=== PATIENT | male | born 1985 | race Hispanic/Latino ===

== ENCOUNTER 2017-06-26 11:14 | Emergency (ER) | payer OTHER ==
[2017-06-26 12:17] LABS: Bilirubin,Urine NEG (Negative); Blood,Urine NEG (Negative); Color,Urine Yellow (Yellow); Protein,Urine <15 mg/dL mg/dL (Negative); Urobilinogen,Urine < 2.0 mg/dL (<2.0); WBC,Urine < 1.0 /HPF (0.0-6.0)
[2017-06-26 12:25] LABS: Amphetamine Screen,Urine PRESUMPTIVE NEGATIVE; Benzodiazepines Screen,Urine PRESUMPTIVE NEGATIVE; Cannabinoid Screen,Urine PRESUMPTIVE NEGATIVE; Cocaine Screen,Urine PRESUMPTIVE NEGATIVE; Methadone Screen,Urine PRESUMPTIVE NEGATIVE; Opiate Screen,Urine PRESUMPTIVE NEGATIVE
[2017-06-26 12:31] LABS: Basophils # (Auto) 0.1 K/mm3 (0.0-0.1); Basophils % (Auto) 0.7 % (0.0-1.8); Eosinophils # (Auto) 0.1 K/mm3 (0.0-0.4); Eosinophils % (Auto) 1.3 % (0.0-4.3); Hematocrit 47.1 % (35.5-45.6); Hemoglobin 16.2 gm/dl (11.8-15.2); Lymphocytes # (Auto) 1.9 K/mm3 (1.2-5.4); Lymphocytes % (Auto) 20.4 % (13.4-35.0); Mean Corpuscular HGB Conc 35 % (32-34); Mean Corpuscular Hemoglobin 29 pg (28-32); Mean Corpuscular Volume 84 fl (84-94); Monocytes # (Auto) 0.8 K/mm3 (0.0-0.8); Monocytes % (Auto) 8.3 % (0.0-7.3); Red Blood Count 5.62 M/mm3 (3.65-5.03); Red Cell Distribution Width 13.6 % (13.2-15.2)
[2017-06-26 12:45] LABS: BUN/Creatinine Ratio 17; Blood Urea Nitrogen 10 mg/dL (9-20); Calcium 9.2 mg/dL (8.4-10.2); Hemolysis Index 35
[2017-06-26 13:34] LABS: Mean Platelet Volume 7.6 fl (6-12); Platelet Count 253 K/mm3 (140-440)
--- NOTE | 2017-06-26 14:49 | Emergency Department Report ---
ED Psych HPI - General Chief Complaint: Psych Stated Complaint: MH Time Seen by Provider: 06/26/17 13:51 Source: patient, police Mode of arrival: Ambulatory - History of Present Illness Initial Comments: 32-year-old male works at [employer] trip was sent to their primary care employee health because he's been having depression with bursts of anger with suicidal ideation. He has had a plan but has not felt serious about instituting in. But he has been having depressive thoughts with suicidal ideation. He is here for evaluation of suicidal ideation. He is not having shortness of breath denies any pain denies any chest pain abdominal complaints neck pain, no complaints or other injuries. He denies any drug or alcohol use was sent to this facility for medical clearance for psychiatric eval Complaint: suicidal ideation, feels depressed -: days(s), unknown Associated Psychiatric Symptoms: depression, suicidal ideation Quality: intermittent Context: not taking psychiatric Treatments Prior to Arrival: placed on mental he If Self Harm: admits thoughts of, has plan - Related Data Allergies Allergy/AdvReac Type Severity Reaction Status Date / Time No Known Allergies Allergy Verified 06/26/17 11:58 ED Review of Systems ROS: Stated complaint: MH Other details as noted in HPI Comment: All other systems reviewed and negative Constitutional: denies: diaphoresis, fever, malaise Eyes: denies: eye discharge, vision change ENT: denies: dental pain, hearing loss, epistaxis Respiratory: denies: shortness of breath, SOB with exertion, SOB at rest, stridor Cardiovascular: denies: chest pain, palpitations, dyspnea on exertion, orthopnea , edema, syncope, paroxysmal nocturnal dyspnea Gastrointestinal: denies: abdominal pain, nausea, vomiting, diarrhea, constipation, hematemesis, melena, hematochezia Neurological: denies: headache, weakness, numbness, paresthesias, confusion, abnormal gait, vertigo Psychiatric: anxiety, depression, suicidal thoughts ED Past Medical Hx - Past Medical History Previous Medical History?: No - Surgical History Past Surgical History?: No - Social History Smoking Status: Never Smoker Substance Use Type: None ED Physical Exam - General Limitations: No Limitations General appearance: alert, anxious - Head Head exam: Present: atraumatic, normocephalic - Eye Eye exam: Present: normal appearance, PERRL, EOMI - ENT ENT exam: Present: normal exam, normal orophraynx - Neck Neck exam: Present: normal inspection. Absent: tenderness, meningismus - Respiratory Respiratory exam: Present: normal lung sounds bilaterally. Absent: respiratory distress, wheezes, rales, rhonchi, stridor, chest wall tenderness, accessory muscle use, decreased breath sounds, prolonged expiratory - Cardiovascular Cardiovascular Exam: Present: regular rate, normal rhythm, normal heart sounds. Absent: bradycardia, tachycardia, irregular rhythm, systolic murmur, diastolic murmur, rubs, gallop - GI/Abdominal GI/Abdominal exam: Present: soft. Absent: distended, tenderness, guarding, rebound, rigid, mass, pulsatile mass - Extremities Exam Extremities exam: Present: normal inspection, other (abrasions on forearms from self-mutilation for range of motion neurovascular intact non-suturable as a cellulitis or compartment syndrome) - Back Exam Back exam: Present: normal inspection, full ROM. Absent: tenderness, CVA tenderness (R), CVA tenderness (L), muscle spasm, paraspinal tenderness, vertebral tenderness, rash noted - Neurological Exam Neurological exam: Present: alert, oriented X3, CN II-XII intact. Absent: motor sensory deficit - Psychiatric Psychiatric exam: Present: depressed, agitated, anxious, suicidal ideation - Skin Skin exam: Present: abrasion, other (superficial abrasions to forearms) ED Course Vital Signs 06/26/17 11:25 Temperature 98.8 F Pulse Rate 95 H Respiratory 18 Rate Blood Pressure 142/98 O2 Sat by Pulse 98 Oximetry ED Medical Decision Making - Lab Data Result diagrams: 06/26/17 12:08 06/26/17 12:08 - Medical Decision Making Patient placed on 1013 by his primary doctor he was medically cleared here with screening labs which were unremarkable mental health is been notified for further evaluation of patient and possible transfer for inpatient psychiatric admission for suicidal ideation Critical care attestation.: If time is entered above; I have spent that time in minutes in the direct care of this critically ill patient, excluding procedure time. ED Disposition Clinical Impression: Depression, Suicidal ideation Disposition: [id number]/[id number] PSY HOSP/PSY UNIT Is pt being admited?: No Condition: Stable Referrals: PRIMARY CARE, [Primary Care Provider] - 3-5 Days Time of Disposition: 14:51
--- NOTE | 2017-06-27 14:48 | Consultation ---
History of Present Illness - Reason for Consult Consult date: 06/27/17 Reason for consult: Initial Psychiatric Evaluation Medications and Allergies Allergies Allergy/AdvReac Type Severity Reaction Status Date / Time No Known Allergies Allergy Verified 06/26/17 11:58 Home Medications Medication Instructions Recorded Confirmed Last Taken Type No Known Home Medications [No 06/26/17 06/26/17 Unknown History Reported Home Medications] Mental Status Exam - Vital signs Last Vital Signs Temp 98.5 F 06/27/17 00:17 Pulse 79 06/27/17 00:17 Resp 18 06/27/17 00:17 BP 135/69 06/27/17 00:17 Pulse Ox 97 06/27/17 00:17 Results Result Diagrams: 06/26/17 12:08 06/26/17 12:08 All other labs normal. Assessment and Plan Assessment and plan: 1. Will start Zoloft 25mg po QAM depression/anxiety, Vistaril 25mg po TID anxiety. 2.Patient educated on black box warning for increase suicidal thoughts. Patient verbalizes full understanding.
[2017-06-27 20:06] VITALS: BP 156/95
[2017-06-27] MEDS ORDERED: VISTARIL PO SCH (21:00)
[2017-06-28] MEDS ORDERED: ZOLOFT PO SCH (10:00)
== END 2017-06-27 21:59 ==
LOC: ED 11:14
DX: F32.9 Major depressive disorder, single episode, unspecified (principal); R45.851 Suicidal ideations
CPT/HCPCS: 36415; 80048; 80307; 81001; 85025; 99285; G0480; 80320